=== PATIENT | female | born 1960 | race Caucasian/White ===

== ENCOUNTER 2020-03-17 21:55 | Emergency (ER) | payer OTHER ==
--- NOTE | 2020-03-17 22:25 | EDM.PDOC ---
ED HPI GENERAL MEDICAL PROBLEM - General Chief Complaint: General Stated Complaint: ?vertigo Time Seen by Provider: 03/17/20 22:19 Source of Information: Reports: Patient - History of Present Illness INITIAL COMMENTS - FREE TEXT/NARRATIVE: Laxmi is a 59 y/o female who comes to the ER with a 1 week history of intermittent dizziness. She has been traveling on the road [facility] at at first she was noticing the things spinning around her and then she occasionally reports that she feels spinning. She is better if she is lying down and not moving. Never had this before. No nausea or vomiting. Neck Pain Score (Numeric/FACES): 2 - Related Data Allergies Allergy/AdvReac Type Severity Reaction Status Date / Time Penicillins Allergy Hives Verified 03/17/20 22:16 Sulfa (Sulfonamide Allergy Hives Verified 03/17/20 22:16 Antibiotics) Home Meds: Home Meds Budesonide [Pulmicort Flexhaler] 1 inhalation INH BID 03/17/20 [History] DULoxetine HCl [Cymbalta] 60 mg PO DAILY 03/17/20 [History] Doxylamine Succinate [Sleep Aid] 25 mg PO BEDTIME PRN 03/17/20 [History] RX: Diclofenac Sodium 75 mg PO BID 03/17/20 [History] RX: Montelukast Sodium 10 mg PO DAILY 03/17/20 [History] RX: methocarbamoL [Methocarbamol] 750 mg PO QID PRN 03/17/20 [History] buPROPion [buPROPion XL] 150 mg PO DAILY 03/17/20 [History] ED ROS GENERAL - Review of Systems Review Of Systems: See Below Constitutional: Reports: No Symptoms HEENT: Reports: Vertigo Respiratory: Reports: No Symptoms Cardiovascular: Reports: No Symptoms Endocrine: Reports: No Symptoms GI/Abdominal: Reports: No Symptoms : Reports: No Symptoms Musculoskeletal: Reports: No Symptoms Skin: Reports: No Symptoms Neurological: Reports: Dizziness Psychiatric: Reports: No Symptoms Hematologic/Lymphatic: Reports: No Symptoms Immunologic: Reports: No Symptoms ED EXAM, GENERAL - Physical Exam Exam: See Below Exam Limited By: No Limitations General Appearance: Alert, WD/WN, No Apparent Distress (adult female) Eye Exam: Bilateral Eye: Nystagmus (left sided nystagmus), PERRL Ears: Normal External Exam, Hearing Grossly Normal, Normal TMs Nose: Normal Inspection, No Blood Throat/Mouth: Normal Inspection, Normal Lips, Normal Teeth, Normal Oropharynx, Normal Voice Neck: Normal Inspection, Supple, Non-Tender Respiratory/Chest: No Respiratory Distress, Lungs Clear, Normal Breath Sounds, Chest Non-Tender Cardiovascular: Normal Peripheral Pulses, Regular Rate, Rhythm GI/Abdominal: Normal Bowel Sounds, Soft, Non-Tender (Female) Exam: Deferred Rectal (Female) Exam: Deferred Back Exam: Normal Inspection Extremities: Normal Inspection, Normal Range of Motion, Non-Tender, No Pedal Edema, Normal Capillary Refill Neurological: Alert, Oriented, CN II-XII Intact, Normal Cognition Psychiatric: Normal Affect, Normal Mood Skin Exam: Warm, Dry, Intact, Normal Color, No Rash Lymphatic: No Adenopathy Course - Vital Signs Text/Narrative:: The patient was seen by the [facility]. Labs done. 2304 Lab reviewed. No abnormals. Left side Iram Maneuver done at this time and patient feeling better when in upright position. She was placed in a soft collar to keep her looking forward. She was given Zofran ODT 4mg and observed. 2324 Patient remained stable in the ER and her sx were minimal. She was given discharge instructions ans sent home in stable condition. Last Recorded V/S: Last Vital Signs Temp 36.6 C 03/17/20 22:00 Pulse 88 03/17/20 22:00 Resp 18 03/17/20 22:00 BP 169/89 H 03/17/20 22:00 Pulse Ox 94 L 03/17/20 22:00 - Orders/Labs/Meds Labs: Laboratory Tests 03/17/20 03/17/20 Range/Units 22:47 22:47 WBC 6.4 (4.0-10.0) x10^3/uL RBC 4.53 (4.00-5.50) x10^6/uL Hgb 14.2 (12.0-16.0) g/dL Hct 42.8 (33.0-47.0) % MCV 94.5 H (78.0-93.0) fL MCH 31.3 (26.0-32.0) pg MCHC 33.2 (32.0-36.0) g/dL RDW Coeff of Ana 12.4 (10.0-15.0) % Plt Count 253 (130-400) x10^3/uL Neut % (Auto) 67.9 (50.0-80.0) % Lymph % (Auto) 19.1 L (25.0-50.0) % [place] % (Auto) 9.2 (2.0-11.0) % Eos % (Auto) 3.0 (0.0-4.0) % Baso % (Auto) 0.8 (0.2-1.2) % Sodium 142 (136-145) mmol/L Potassium 4.1 (3.5-5.1) mmol/L Chloride 103 (98-107) mmol/L Carbon Dioxide 31 (21-32) mmol/L Anion Gap 12.1 (10-20) mmol/L BUN 15 (7-18) mg/dL Creatinine 0.9 (0.55-1.02) mg/dL Est Cr Clr Drug Dosing TNP Estimated GFR (MDRD) > 60 Glucose 152 H (74-106) mg/dL Calcium 9.3 (8.5-10.1) mg/dL Corrected Calcium 9.38 (8.5-10.1) mg/dL Total Bilirubin 0.5 (0.2-1.0) mg/dL AST 20 (15-37) U/L ALT 35 (14-59) U/L Alkaline Phosphatase 89 (46-116) U/L Total Protein 7.7 (6.4-8.2) g/dL Albumin 3.9 (3.4-5.0) g/dL Globulin 3.8 Albumin/Globulin Ratio 1.03 TSH, Ultra Sensitive 0.667 (0.358-3.74) uIU/mL Meds: Medications Discontinued Medications Generic Name Dose Route Start Last Admin Trade Name Freq PRN Reason Stop Dose Admin Ondansetron HCl 4 mg 03/17/20 23:11 03/17/20 23:15 Zofran Odt PO 03/17/20 23:12 4 mg ONETIME ONE Administration Ondansetron HCl 2 packet 03/17/20 23:19 03/17/20 23:22 Take Home: Ondansetron Odt 4 Mg, 2 Tab Pack PO 03/17/20 23:20 2 packet ONETIME ONE Administration Departure - Departure Time of Disposition: 23:20 Disposition: Home, Self-Care 01 Condition: Good Clinical Impression: Benign paroxysmal positional vertigo - Discharge Information *PRESCRIPTION DRUG MONITORING PROGRAM REVIEWED*: No *COPY OF PRESCRIPTION DRUG MONITORING REPORT IN PATIENT CHRISTOPH: No Instructions: How to Perform the Iram Maneuver, Benign Positional Vertigo Referrals: PCP,Not In Area [Primary Care Provider] - Forms: ED Department Discharge Additional Instructions: -Ondanestron ODT 4mg oral every 6 hours as needed for nausea #4 (Take Home Rx) -Continue to wear the soft collar for 24 hours. -Sleep on 2 pillows tonight to keep your head elevated. -Iram Maneuver instructions are attached, buy you can also find various [employer] videos with visual explanations. -If your symptoms are not better, sometimes a Physical Therapy referral will help. -Return to the ER if needed fro any concerns. Sepsis Event Note - Evaluation Sepsis Screening Result: No Definite Risk - Focused Exam Vital Signs: Vital Signs Temp Pulse Resp BP Pulse Ox 03/17/20 22:00 36.6 C 88 18 169/89 H 94 L Date Exam was Performed: 03/17/20 Time Exam was Performed: 23:31
[2020-03-17] MEDS: Ondansetron 4 MG Tab.DIS PO ONE (23:15)
[2020-03-17] MEDS: Take Home: Ondansetron 4 MG Tab.DIS, 2 Tab Pack PO ONE (23:22)
[2020-03-17 23:29] LABS: ANION GAP 12.1 mmol/L (10-20); CHLORIDE,CL 103 mmol/L (98-107); SODIUM,NA 142 mmol/L (136-145)
== END 2020-03-17 23:33 | disposition home or self-care (01) ==
LOC: VM.ED 21:55
DX: H81.10 Benign paroxysmal vertigo, unspecified ear (principal); Z88.0 Allergy status to penicillin; Z88.2 Allergy status to sulfonamides; Z79.899 Other long term (current) drug therapy
CPT/HCPCS: 36415; 80053; 84443; 85025; 99283; A9270-GY